=== PATIENT | male | born 1950 | race Caucasian/White ===

== ENCOUNTER 2021-10-26 20:09 | Inpatient (IN) | payer MEDICARE ==
[2021-10-26] MEDS ORDERED: Acetaminophen 650 MG Suppository PR PRN (23:59)
[2021-10-26] MEDS ORDERED: Ondansetron ODT 4 MG TAB PO PRN (23:59)
[2021-10-26] MEDS ORDERED: Acetaminophen 325 MG TAB PO PRN (23:59)
[2021-10-27] MEDS: Morphine 2 MG/ML VIAL SLOW IVP PRN ×6 (00:49→21:55)
[2021-10-27] MEDS: Ondansetron PF 4 MG/2 ML Vial IVP PRN (00:49)
[2021-10-27 01:58] VITALS: BMI 30.6
[2021-10-27] MEDS: cefTRIAXone\\ROCEPHIN 1 GM in Sodium Chloride 0.9% 100 ML IVPB SCH (04:16)
[2021-10-27 06:13] LABS: #Basophils 0.1 thou/uL (0.0-0.2); #Eosinphils 0.1 thou/uL (0.0-0.7); #Lymphocytes 2.1 thou/uL (1.20-3.40); #Monocytes 1.5 thou/uL (0.11-0.59); #Neutrophils 7.2 thou/uL (1.40-6.50); %Basophils 0.6 % (0.0-1.0); %Eosinophils 0.7 % (0.0-10.0); %Lymphocytes 18.9 % (21.0-51.0); %Monocytes 13.7 % (0.0-10.0); %Neutrophils 66.1 % (42.0-75.0); Hemoglobin 13.2 g/dL (14.0-18.0); Mean Corpuscular HGB CONC 33.6 g/dL (32.0-36.0); Mean Corpuscular Hemoglobin 33.6 pg (27.0-31.0); Mean Corpuscular Volume 99.9 fL (78.0-98.0); Mean Platelet Volume 6.9 fL (7.4-10.4); Platelet Count 231 thou/uL (130-400); RBC Distribution Width 11.4 % (11.5-14.5); Red Blood Cell (RBC) Count 3.94 mill/uL (4.70-6.10); White Blood Cell (WBC) Count 10.9 thou/uL (4.8-10.8)
[2021-10-27 06:54] LABS: Anion Gap 14 mmol/L (10-20); BUN (Urea Nitrogen) 9 mg/dL (8.4-25.7); Calc. Creatinine Clearance 134 mL/min (70-130); Calcium 8.6 mg/dL (7.8-10.44); Carbon Dioxide 22 mmol/L (23-31); Chloride 90 mmol/L (98-107); Glucose 94 mg/dL (80-115); Potassium 3.9 mmol/L (3.5-5.1); Sodium 122 mmol/L (136-145)
[2021-10-27] MEDS: Polyethylene Glycol 3350 17 GM Packet PO SCH (08:00)
[2021-10-27 16:28] LABS: SARS-CoV-2 PCR by NAA Not Detected (NotDetected)
[2021-10-27] MEDS: HYDROcodone/Acetaminophen 10/325 mg Tablet PO PRN (19:18)
[2021-10-27] MEDS: Metoprolol Tartrate 50 MG TAB PO SCH (21:05)
[2021-10-28] MEDS: Morphine 2 MG/ML VIAL SLOW IVP PRN ×3 (02:32→22:42)
[2021-10-28] MEDS: cefTRIAXone\\ROCEPHIN 1 GM in Sodium Chloride 0.9% 100 ML IVPB SCH (02:32)
[2021-10-28] MEDS: oxyCODONE 5 MG TAB PO PRN ×2 (06:09→17:50)
[2021-10-28] MEDS: Polyethylene Glycol 3350 17 GM Packet PO SCH (06:09)
[2021-10-28 06:47] LABS: #Eosinphils 0.1 thou/uL (0.0-0.7); #Lymphocytes 1.6 thou/uL (1.20-3.40); #Monocytes 1.4 thou/uL (0.11-0.59); #Neutrophils 6.2 thou/uL (1.40-6.50); %Basophils 0.3 % (0.0-1.0); %Eosinophils 0.7 % (0.0-10.0); %Lymphocytes 17.6 % (21.0-51.0); %Monocytes 14.6 % (0.0-10.0); %Neutrophils 66.8 % (42.0-75.0); Hemoglobin 13.1 g/dL (14.0-18.0); Mean Corpuscular Hemoglobin 33.9 pg (27.0-31.0); Mean Corpuscular Volume 99.6 fL (78.0-98.0); Mean Platelet Volume 6.8 fL (7.4-10.4); Platelet Count 246 thou/uL (130-400); RBC Distribution Width 11.5 % (11.5-14.5); Red Blood Cell (RBC) Count 3.87 mill/uL (4.70-6.10); White Blood Cell (WBC) Count 9.3 thou/uL (4.8-10.8)
[2021-10-28 07:13] LABS: Anion Gap 14 mmol/L (10-20); BUN (Urea Nitrogen) 8 mg/dL (8.4-25.7); Calc. Creatinine Clearance 152 mL/min (70-130); Calcium 8.4 mg/dL (7.8-10.44); Carbon Dioxide 23 mmol/L (23-31); Chloride 90 mmol/L (98-107); Glucose 95 mg/dL (80-115); Iron 31 ug/dL (65-175); Iron Binding Capacity, Total 251 mcg/dL (261-462); Potassium 4.1 mmol/L (3.5-5.1); Sodium 123 mmol/L (136-145)
[2021-10-28 07:54] LABS: Ferritin 1027.26 ng/mL (22-322)
[2021-10-28] MEDS: Metoprolol Tartrate 50 MG TAB PO SCH ×2 (08:16→20:24)
[2021-10-28] MEDS: Digoxin 0.25 MG TAB PO SCH (08:17)
[2021-10-28 09:34] LABS: Hep B Surf Ag Non-Reactive S/CO (NonReactive)
[2021-10-28 09:36] LABS: HBSAg Index 0.16 S/CO (0-0.99); Hep C IgG Ab Non-Reactive (NonReactive)
[2021-10-28 09:38] LABS: Hep C Index 0.06 S/CO (0-0.79)
[2021-10-28 09:39] LABS: Hep A IgM AB Non-Reactive (NonReactive)
[2021-10-28] MEDS ORDERED: GoLYTELY 4,000 ml Bottle PO SCH (10:45)
[2021-10-28 11:46] LABS: HBCM Index 0.08 S/CO (0-0.79); Hepatitis B Core IgM Abs Non-Reactive (NonReactive)
[2021-10-28] MEDS: HYDROcodone/Acetaminophen 10/325 mg Tablet PO PRN (12:31)
[2021-10-28] MEDS: Ondansetron PF 4 MG/2 ML Vial IVP PRN (15:43)
[2021-10-28 16:17] LABS: Anion Gap 13 mmol/L (10-20); BUN (Urea Nitrogen) 8 mg/dL (8.4-25.7); Calc. Creatinine Clearance 150 mL/min (70-130); Calcium 8.4 mg/dL (7.8-10.44); Carbon Dioxide 24 mmol/L (23-31); Chloride 90 mmol/L (98-107); Glucose 97 mg/dL (80-115); Potassium 4.1 mmol/L (3.5-5.1); Sodium 123 mmol/L (136-145)
[2021-10-28] MEDS ORDERED: Sodium Chloride 1 GM TAB PO SCH (19:30)
[2021-10-29] MEDS: cefTRIAXone\\ROCEPHIN 1 GM in Sodium Chloride 0.9% 100 ML IVPB SCH (03:03)
[2021-10-29] MEDS: oxyCODONE 5 MG TAB PO PRN (03:03)
[2021-10-29] MEDS ORDERED: GoLYTELY 4,000 ml Bottle PO SCH (06:15)
[2021-10-29] MEDS: Polyethylene Glycol 3350 17 GM Packet PO SCH (07:19)
[2021-10-29 08:05] LABS: #Eosinphils 0.1 thou/uL (0.0-0.7); #Monocytes 1.4 thou/uL (0.11-0.59); %Basophils 0.3 % (0.0-1.0); %Eosinophils 1.1 % (0.0-10.0); %Monocytes 14.5 % (0.0-10.0); %Neutrophils 63.2 % (42.0-75.0); Mean Corpuscular HGB CONC 33.5 g/dL (32.0-36.0); Mean Corpuscular Hemoglobin 33.3 pg (27.0-31.0); Mean Corpuscular Volume 99.4 fL (78.0-98.0); Mean Platelet Volume 6.6 fL (7.4-10.4); Platelet Count 293 thou/uL (130-400); RBC Distribution Width 11.5 % (11.5-14.5); Red Blood Cell (RBC) Count 3.91 mill/uL (4.70-6.10); White Blood Cell (WBC) Count 9.5 thou/uL (4.8-10.8)
[2021-10-29] MEDS: Digoxin 0.25 MG TAB PO SCH (08:08)
[2021-10-29] MEDS: Metoprolol Tartrate 50 MG TAB PO SCH ×2 (08:08→19:23)
[2021-10-29] MEDS: Sodium Chloride 1 GM TAB PO SCH ×3 (08:10→19:23)
[2021-10-29 08:19] LABS: Anion Gap 14 mmol/L (10-20); BUN (Urea Nitrogen) 7 mg/dL (8.4-25.7); Calc. Creatinine Clearance 145 mL/min (70-130); Calcium 8.2 mg/dL (7.8-10.44); Carbon Dioxide 25 mmol/L (23-31); Chloride 88 mmol/L (98-107); Glucose 82 mg/dL (80-115); Potassium 3.9 mmol/L (3.5-5.1); Sodium 123 mmol/L (136-145)
[2021-10-29] MEDS ORDERED: PROPOFOL 200 MG/20 ML VIAL ONE (11:53)
[2021-10-29] MEDS ORDERED: Esmolol 100 MG/10 ML VIAL ONE (11:53)
[2021-10-29 12:09] LABS: ANA Symphony (Qualitative) Negative (Negative); ANA Symphony (Quantitative) 0.2 Ratio (< 0.7 Negative); EliA Vaculitis New Method **** NEW METHOD ****; Mitochondrial Ab Less than 0.5 U/mL (<4 Negative); dsDNA IgG Antibody 0.6 IU/mL (<10 Negative)
[2021-10-29] MEDS: HYDROcodone/Acetaminophen 10/325 mg Tablet PO PRN (19:26)
[2021-10-29] MEDS: Morphine 2 MG/ML VIAL SLOW IVP PRN (22:38)
[2021-10-30] MEDS: cefTRIAXone\\ROCEPHIN 1 GM in Sodium Chloride 0.9% 100 ML IVPB SCH (03:49)
[2021-10-30] MEDS: Polyethylene Glycol 3350 17 GM Packet PO SCH (06:20)
[2021-10-30] MEDS: Morphine 2 MG/ML VIAL SLOW IVP PRN ×2 (06:20→11:29)
[2021-10-30 07:37] LABS: #Eosinphils 0.1 thou/uL (0.0-0.7); #Lymphocytes 1.5 thou/uL (1.20-3.40); #Monocytes 1.2 thou/uL (0.11-0.59); %Basophils 0.5 % (0.0-1.0); %Eosinophils 1.1 % (0.0-10.0); %Lymphocytes 16.9 % (21.0-51.0); %Monocytes 13.4 % (0.0-10.0); Hemoglobin 12.6 g/dL (14.0-18.0); Mean Corpuscular HGB CONC 33.5 g/dL (32.0-36.0); Mean Corpuscular Hemoglobin 33.2 pg (27.0-31.0); Mean Corpuscular Volume 99.1 fL (78.0-98.0); Mean Platelet Volume 6.5 fL (7.4-10.4); Platelet Count 237 thou/uL (130-400); RBC Distribution Width 11.5 % (11.5-14.5); Red Blood Cell (RBC) Count 3.78 mill/uL (4.70-6.10); White Blood Cell (WBC) Count 8.9 thou/uL (4.8-10.8)
[2021-10-30 07:47] LABS: PTT 29.1 sec (22.9-36.1)
[2021-10-30 08:03] LABS: Anion Gap 15 mmol/L (10-20); BUN (Urea Nitrogen) 6 mg/dL (8.4-25.7); Calc. Creatinine Clearance 166 mL/min (70-130); Calcium 7.9 mg/dL (7.8-10.44); Carbon Dioxide 21 mmol/L (23-31); Chloride 88 mmol/L (98-107); Glucose 83 mg/dL (80-115); Potassium 3.8 mmol/L (3.5-5.1); Sodium 120 mmol/L (136-145)
[2021-10-30] MEDS: Digoxin 0.25 MG TAB PO SCH (08:20)
[2021-10-30] MEDS: Metoprolol Tartrate 50 MG TAB PO SCH (08:21)
[2021-10-30] MEDS: Sodium Chloride 1 GM TAB PO SCH ×3 (08:24→20:21)
[2021-10-30] MEDS: HYDROcodone/Acetaminophen 10/325 mg Tablet PO PRN ×2 (09:55→20:14)
[2021-10-30] MEDS ORDERED: Midazolam HCl 2 mg/2 ml Vial ONE (10:10)
[2021-10-30] MEDS ORDERED: Fentanyl 100 MCG/2 ML VIAL ONE (10:10)
[2021-10-30] MEDS ORDERED: Lidocaine 1% PF 5 ML VIAL ONE (10:11)
[2021-10-30] MEDS ORDERED: Sodium Bicarbonate 2.5 MEQ/5 ML VIAL ONE (10:11)
[2021-10-30] MEDS ORDERED: Iopamidol 370 76% 100 ML VIAL ONE (12:45)
[2021-10-30] MEDS: oxyCODONE 5 MG TAB PO PRN (15:05)
[2021-10-30 16:27] LABS: Anion Gap 12 mmol/L (10-20); BUN (Urea Nitrogen) 4 mg/dL (8.4-25.7); Calc. Creatinine Clearance 143 mL/min (70-130); Calcium 8.2 mg/dL (7.8-10.44); Carbon Dioxide 25 mmol/L (23-31); Chloride 86 mmol/L (98-107); Glucose 110 mg/dL (80-115); Potassium 3.8 mmol/L (3.5-5.1)
[2021-10-30 16:53] LABS: Sodium 119 mmol/L (136-145)
[2021-10-30] MEDS ORDERED: Sodium Chloride 3% 200 ML IVPB SCH (17:45)
[2021-10-30] MEDS ORDERED: Metoprolol Tartrate 50 MG TAB PO SCH (21:00)
[2021-10-30 23:25] LABS: Anion Gap 11 mmol/L (10-20); BUN (Urea Nitrogen) 6 mg/dL (8.4-25.7); Calc. Creatinine Clearance 132 mL/min (70-130); Calcium 8.3 mg/dL (7.8-10.44); Carbon Dioxide 25 mmol/L (23-31); Chloride 90 mmol/L (98-107); Glucose 133 mg/dL (80-115); Potassium 4.1 mmol/L (3.5-5.1); Sodium 122 mmol/L (136-145)
[2021-10-31] MEDS: cefTRIAXone\\ROCEPHIN 1 GM in Sodium Chloride 0.9% 100 ML IVPB SCH (03:34)
[2021-10-31] MEDS: HYDROcodone/Acetaminophen 10/325 mg Tablet PO PRN (06:07)
[2021-10-31] MEDS: Polyethylene Glycol 3350 17 GM Packet PO SCH (06:07)
[2021-10-31 07:02] LABS: #Basophils 0.1 thou/uL (0.0-0.2); #Eosinphils 0.1 thou/uL (0.0-0.7); #Lymphocytes 1.6 thou/uL (1.20-3.40); #Monocytes 1.4 thou/uL (0.11-0.59); #Neutrophils 6.8 thou/uL (1.40-6.50); %Basophils 0.5 % (0.0-1.0); %Lymphocytes 15.9 % (21.0-51.0); %Monocytes 13.8 % (0.0-10.0); %Neutrophils 68.7 % (42.0-75.0); Mean Corpuscular HGB CONC 33.5 g/dL (32.0-36.0); Mean Corpuscular Hemoglobin 33.4 pg (27.0-31.0); Mean Corpuscular Volume 99.7 fL (78.0-98.0); Mean Platelet Volume 6.6 fL (7.4-10.4); Platelet Count 265 thou/uL (130-400); RBC Distribution Width 11.5 % (11.5-14.5); Red Blood Cell (RBC) Count 3.88 mill/uL (4.70-6.10)
[2021-10-31 07:23] LABS: Anion Gap 11 mmol/L (10-20); BUN (Urea Nitrogen) 6 mg/dL (8.4-25.7); Calc. Creatinine Clearance 152 mL/min (70-130); Calcium 8.4 mg/dL (7.8-10.44); Carbon Dioxide 24 mmol/L (23-31); Chloride 90 mmol/L (98-107); Glucose 96 mg/dL (80-115); Potassium 3.9 mmol/L (3.5-5.1); Sodium 121 mmol/L (136-145)
[2021-10-31] MEDS ORDERED: Sodium Chloride 3% 500 ML IVPB SCH ×2 (07:30→21:15)
[2021-10-31] MEDS: Metoprolol Tartrate 50 MG TAB PO SCH ×2 (08:13→20:02)
[2021-10-31] MEDS: Sodium Chloride 1 GM TAB PO SCH ×3 (08:13→20:02)
[2021-10-31] MEDS: Digoxin 0.25 MG TAB PO SCH (08:14)
[2021-10-31] MEDS: Morphine 2 MG/ML VIAL SLOW IVP PRN ×2 (08:18→17:21)
[2021-10-31 13:14] LABS: Anion Gap 11 mmol/L (10-20); BUN (Urea Nitrogen) 6 mg/dL (8.4-25.7); Calc. Creatinine Clearance 160 mL/min (70-130); Calcium 7.9 mg/dL (7.8-10.44); Carbon Dioxide 21 mmol/L (23-31); Chloride 91 mmol/L (98-107); Glucose 124 mg/dL (80-115); Potassium 3.4 mmol/L (3.5-5.1); Sodium 120 mmol/L (136-145)
[2021-10-31] MEDS: oxyCODONE 5 MG TAB PO PRN (13:21)
[2021-10-31] MEDS ORDERED: Potassium Chloride 20 MEQ TAB PO SCH (15:00)
[2021-10-31 16:28] LABS: Anion Gap 13 mmol/L (10-20); BUN (Urea Nitrogen) 6 mg/dL (8.4-25.7); Calc. Creatinine Clearance 150 mL/min (70-130); Calcium 7.9 mg/dL (7.8-10.44); Carbon Dioxide 21 mmol/L (23-31); Chloride 94 mmol/L (98-107); Glucose 127 mg/dL (80-115); Potassium 3.7 mmol/L (3.5-5.1); Sodium 124 mmol/L (136-145)
[2021-10-31 19:52] LABS: #Basophils 0.1 thou/uL (0.0-0.2); #Eosinphils 0.1 thou/uL (0.0-0.7); #Lymphocytes 1.2 thou/uL (1.20-3.40); #Monocytes 1.2 thou/uL (0.11-0.59); #Neutrophils 6.4 thou/uL (1.40-6.50); %Basophils 0.8 % (0.0-1.0); %Eosinophils 1.1 % (0.0-10.0); %Lymphocytes 13.7 % (21.0-51.0); %Monocytes 13.3 % (0.0-10.0); %Neutrophils 71.2 % (42.0-75.0); Hemoglobin 12.6 g/dL (14.0-18.0); Mean Corpuscular Hemoglobin 33.5 pg (27.0-31.0); Mean Platelet Volume 6.4 fL (7.4-10.4); Platelet Count 277 thou/uL (130-400); RBC Distribution Width 11.7 % (11.5-14.5); Red Blood Cell (RBC) Count 3.75 mill/uL (4.70-6.10)
[2021-10-31 20:01] LABS: Lactic Acid 2.2 mmol/L (0.5-2.2)
[2021-10-31] MEDS: Senokot S 8.6-50 MG TAB PO SCH (20:02)
[2021-10-31 20:06] LABS: ALT (SGPT) 72 U/L (8-55); AST (SGOT) 66 U/L (5-34); Alkaline Phosphatase 275 U/L (40-110); Anion Gap 11 mmol/L (10-20); BUN (Urea Nitrogen) 7 mg/dL (8.4-25.7); Bilirubin, Total 1.2 mg/dL (0.2-1.2); Calc. Creatinine Clearance 138 mL/min (70-130); Carbon Dioxide 20 mmol/L (23-31); Chloride 96 mmol/L (98-107); Globulin 2.8 g/dL (2.4-3.5); Glucose 139 mg/dL (80-115); Potassium 3.8 mmol/L (3.5-5.1); Protein, Total 5.8 g/dL (5.8-8.1); Sodium 123 mmol/L (136-145)
[2021-10-31 20:16] LABS: Magnesium 1.6 mg/dL (1.6-2.6)
[2021-10-31] MEDS: Metoprolol Tartrate 5 MG/5 ML VIAL IVP PRN (21:10)
[2021-10-31] MEDS ORDERED: Magnesium Sulfate In Water 4 GM in Premix Bag 1 BAG IVPB SCH (21:30)
[2021-10-31] MEDS ORDERED: Electrolyte Replacement Protocol 1 EACH FS PRN (23:00)
[2021-11-01 01:19] LABS: Anion Gap 11 mmol/L (10-20); BUN (Urea Nitrogen) 7 mg/dL (8.4-25.7); Calc. Creatinine Clearance 143 mL/min (70-130); Calcium 8.2 mg/dL (7.8-10.44); Carbon Dioxide 26 mmol/L (23-31); Chloride 96 mmol/L (98-107); Glucose 107 mg/dL (80-115); Potassium 4.4 mmol/L (3.5-5.1); Sodium 129 mmol/L (136-145)
[2021-11-01] MEDS: oxyCODONE 5 MG TAB PO PRN ×3 (01:55→20:32)
[2021-11-01] MEDS: cefTRIAXone\\ROCEPHIN 1 GM in Sodium Chloride 0.9% 100 ML IVPB SCH (03:08)
[2021-11-01 04:19] LABS: #Eosinphils 0.1 thou/uL (0.0-0.7); #Lymphocytes 1.4 thou/uL (1.20-3.40); #Monocytes 1.1 thou/uL (0.11-0.59); #Neutrophils 5.8 thou/uL (1.40-6.50); %Basophils 0.4 % (0.0-1.0); %Eosinophils 1.6 % (0.0-10.0); %Lymphocytes 16.6 % (21.0-51.0); %Monocytes 13.3 % (0.0-10.0); %Neutrophils 68.1 % (42.0-75.0); Hemoglobin 12.4 g/dL (14.0-18.0); Mean Corpuscular HGB CONC 32.8 g/dL (32.0-36.0); Mean Corpuscular Hemoglobin 33.3 pg (27.0-31.0); Mean Platelet Volume 6.4 fL (7.4-10.4); Platelet Count 283 thou/uL (130-400); RBC Distribution Width 11.7 % (11.5-14.5); Red Blood Cell (RBC) Count 3.71 mill/uL (4.70-6.10); White Blood Cell (WBC) Count 8.5 thou/uL (4.8-10.8)
[2021-11-01 04:39] LABS: Anion Gap 11 mmol/L (10-20); BUN (Urea Nitrogen) 7 mg/dL (8.4-25.7); Calc. Creatinine Clearance 145 mL/min (70-130); Carbon Dioxide 24 mmol/L (23-31); Chloride 98 mmol/L (98-107); Glucose 97 mg/dL (80-115); Magnesium 2.4 mg/dL (1.6-2.6); Potassium 4.6 mmol/L (3.5-5.1); Sodium 128 mmol/L (136-145)
[2021-11-01] MEDS ORDERED: Potassium Chloride 20 MEQ TAB PO SCH (05:15)
[2021-11-01 06:35] LABS: Bacteria/HPF None Seen HPF (None Seen); Bilirubin Negative (Negative); Blood, Urine Negative (Negative); Clarity Clear (Clear); Glucose, Urine (Dipstick) Normal (Negative); Ketone, Urine Negative (Negative); Leukocyte Negative Leu/uL (Negative); Nitrite Negative (Negative); Protein, Urine (Dipstick) Negative (Neg-Trace); RBC/HPF 0-3 HPF (0-3); Specific Gravity, Urine 1.021 (1.002-1.036); Squamous Epithelial 0-3 HPF (0-3)
[2021-11-01 06:39] LABS: Urine Culture Reflex Yes Yes
[2021-11-01] MEDS: Digoxin 0.25 MG TAB PO SCH (08:08)
[2021-11-01] MEDS: Senokot S 8.6-50 MG TAB PO SCH ×2 (08:09→20:33)
[2021-11-01] MEDS: Metoprolol Tartrate 50 MG TAB PO SCH ×2 (08:09→20:33)
[2021-11-01] MEDS: Polyethylene Glycol 3350 17 GM Packet PO SCH (11:00)
[2021-11-01] MEDS: Sodium Chloride 1 GM TAB PO SCH ×3 (11:00→21:02)
[2021-11-01] MEDS: Morphine 2 MG/ML VIAL SLOW IVP PRN ×2 (12:15→16:02)
[2021-11-01] MEDS ORDERED: Iopamidol 370 76% 100 ML VIAL ONE (13:50)
[2021-11-01 14:20] LABS: Anion Gap 12 mmol/L (10-20); BUN (Urea Nitrogen) 6 mg/dL (8.4-25.7); Calc. Creatinine Clearance 145 mL/min (70-130); Calcium 8.1 mg/dL (7.8-10.44); Carbon Dioxide 23 mmol/L (23-31); Chloride 98 mmol/L (98-107); Glucose 120 mg/dL (80-115); Potassium 4.3 mmol/L (3.5-5.1); Sodium 129 mmol/L (136-145)
[2021-11-01] MEDS: Rivaroxaban 10 MG TAB PO SCH (16:02)
[2021-11-01] MEDS: Metoprolol Tartrate 5 MG/5 ML VIAL IVP PRN (18:48)
[2021-11-01] MEDS ORDERED: Digoxin 0.5 MG/2 ML AMP SLOW IVP SCH (19:30)
[2021-11-02] MEDS: Morphine 2 MG/ML VIAL SLOW IVP PRN ×3 (00:13→16:46)
[2021-11-02] MEDS ORDERED: Digoxin 0.5 MG/2 ML AMP SLOW IVP SCH ×2 (01:30→07:30)
[2021-11-02] MEDS: cefTRIAXone\\ROCEPHIN 1 GM in Sodium Chloride 0.9% 100 ML IVPB SCH (03:52)
[2021-11-02] MEDS: HYDROcodone/Acetaminophen 10/325 mg Tablet PO PRN ×2 (03:58→18:29)
[2021-11-02 04:08] LABS: #Basophils 0.1 thou/uL (0.0-0.2); #Eosinphils 0.2 thou/uL (0.0-0.7); #Lymphocytes 1.5 thou/uL (1.20-3.40); #Monocytes 1.2 thou/uL (0.11-0.59); %Basophils 0.8 % (0.0-1.0); %Eosinophils 1.5 % (0.0-10.0); %Lymphocytes 13.2 % (21.0-51.0); %Monocytes 10.9 % (0.0-10.0); %Neutrophils 73.6 % (42.0-75.0); Hemoglobin 13.3 g/dL (14.0-18.0); Mean Corpuscular HGB CONC 33.2 g/dL (32.0-36.0); Mean Corpuscular Hemoglobin 33.3 pg (27.0-31.0); Mean Platelet Volume 6.5 fL (7.4-10.4); Platelet Count 311 thou/uL (130-400); RBC Distribution Width 11.8 % (11.5-14.5); Red Blood Cell (RBC) Count 3.99 mill/uL (4.70-6.10); White Blood Cell (WBC) Count 10.9 thou/uL (4.8-10.8)
[2021-11-02 04:30] LABS: Anion Gap 12 mmol/L (10-20); BUN (Urea Nitrogen) 6 mg/dL (8.4-25.7); Calc. Creatinine Clearance 150 mL/min (70-130); Calcium 8.8 mg/dL (7.8-10.44); Carbon Dioxide 25 mmol/L (23-31); Chloride 94 mmol/L (98-107); Glucose 101 mg/dL (80-115); Potassium 4.4 mmol/L (3.5-5.1); Sodium 127 mmol/L (136-145)
[2021-11-02] MEDS: Metoprolol Tartrate 5 MG/5 ML VIAL IVP PRN (04:45)
[2021-11-02] MEDS ORDERED: Bisacodyl 10 MG SUPP PR PRN (08:36)
[2021-11-02] MEDS: Polyethylene Glycol 3350 17 GM Packet PO SCH (08:40)
[2021-11-02] MEDS: Senokot S 8.6-50 MG TAB PO SCH ×2 (08:40→20:11)
[2021-11-02] MEDS: oxyCODONE 5 MG TAB PO PRN ×2 (08:40→20:12)
[2021-11-02] MEDS: Sodium Chloride 1 GM TAB PO SCH ×3 (08:41→20:11)
[2021-11-02] MEDS: Metoprolol Tartrate 50 MG TAB PO SCH ×2 (08:41→20:12)
[2021-11-02] MEDS ORDERED: Bisacodyl 10 MG SUPP PR SCH (08:45)
[2021-11-02] MEDS: Rivaroxaban 10 MG TAB PO SCH (16:43)
[2021-11-02 17:36] LABS: Anion Gap 15 mmol/L (10-20); BUN (Urea Nitrogen) 6 mg/dL (8.4-25.7); Calc. Creatinine Clearance 138 mL/min (70-130); Calcium 8.4 mg/dL (7.8-10.44); Carbon Dioxide 21 mmol/L (23-31); Chloride 94 mmol/L (98-107); Glucose 109 mg/dL (80-115); Potassium 4.2 mmol/L (3.5-5.1); Sodium 126 mmol/L (136-145)
[2021-11-03] MEDS: Morphine 2 MG/ML VIAL SLOW IVP PRN ×4 (01:26→20:25)
[2021-11-03] MEDS: cefTRIAXone\\ROCEPHIN 1 GM in Sodium Chloride 0.9% 100 ML IVPB SCH (02:56)
[2021-11-03] MEDS: HYDROcodone/Acetaminophen 10/325 mg Tablet PO PRN (02:57)
[2021-11-03 04:36] LABS: #Basophils 0.1 thou/uL (0.0-0.2); #Eosinphils 0.2 thou/uL (0.0-0.7); #Lymphocytes 1.3 thou/uL (1.20-3.40); #Monocytes 1.3 thou/uL (0.11-0.59); #Neutrophils 7.6 thou/uL (1.40-6.50); %Basophils 0.9 % (0.0-1.0); %Eosinophils 2.3 % (0.0-10.0); %Lymphocytes 12.7 % (21.0-51.0); %Monocytes 12.3 % (0.0-10.0); %Neutrophils 71.9 % (42.0-75.0); Hemoglobin 13.2 g/dL (14.0-18.0); Mean Corpuscular HGB CONC 32.9 g/dL (32.0-36.0); Mean Corpuscular Hemoglobin 32.9 pg (27.0-31.0); Mean Platelet Volume 6.4 fL (7.4-10.4); Platelet Count 304 thou/uL (130-400); RBC Distribution Width 11.8 % (11.5-14.5); Red Blood Cell (RBC) Count 4.01 mill/uL (4.70-6.10); White Blood Cell (WBC) Count 10.5 thou/uL (4.8-10.8)
[2021-11-03 04:59] LABS: Anion Gap 13 mmol/L (10-20); BUN (Urea Nitrogen) 8 mg/dL (8.4-25.7); Calc. Creatinine Clearance 150 mL/min (70-130); Calcium 8.6 mg/dL (7.8-10.44); Carbon Dioxide 23 mmol/L (23-31); Chloride 95 mmol/L (98-107); Glucose 105 mg/dL (80-115); Magnesium 1.8 mg/dL (1.6-2.6); Potassium 4.3 mmol/L (3.5-5.1); Sodium 127 mmol/L (136-145)
[2021-11-03] MEDS ORDERED: Magnesium 2 GM/50 ML(in water) 2 GM in Premix Bag 1 BAG IVPB SCH (06:00)
[2021-11-03] MEDS: Sodium Chloride 1 GM TAB PO SCH (08:07)
[2021-11-03] MEDS: Metoprolol Tartrate 50 MG TAB PO SCH (08:07)
[2021-11-03] MEDS: Senokot S 8.6-50 MG TAB PO SCH ×2 (08:07→20:25)
[2021-11-03] MEDS: Polyethylene Glycol 3350 17 GM Packet PO SCH (08:07)
[2021-11-03] MEDS: Digoxin 0.125 MG TAB PO SCH (08:08)
[2021-11-03] MEDS: oxyCODONE 5 MG TAB PO PRN ×3 (08:09→23:25)
[2021-11-03] MEDS ORDERED: Metoprolol Tartrate 50 MG TAB PO SCH (10:15)
[2021-11-03 15:36] LABS: Digoxin 1.18 ng/mL (0.8-2.0)
[2021-11-03 16:35] LABS: SARS-CoV-2 PCR by NAA Not Detected (NotDetected)
[2021-11-03] MEDS: Rivaroxaban 10 MG TAB PO SCH (17:02)
[2021-11-03 17:19] LABS: Anion Gap 14 mmol/L (10-20); BUN (Urea Nitrogen) 9 mg/dL (8.4-25.7); Calc. Creatinine Clearance 119 mL/min (70-130); Calcium 9.3 mg/dL (7.8-10.44); Carbon Dioxide 27 mmol/L (23-31); Chloride 101 mmol/L (98-107); Glucose 114 mg/dL (80-115); Potassium 4.5 mmol/L (3.5-5.1); Sodium 137 mmol/L (136-145)
[2021-11-03] MEDS ORDERED: Amiodarone 150 MG in Dextrose 5% in Water 100 ML IVPB SCH (17:45)
[2021-11-03] MEDS: Amiodarone 450 MG in Dextrose 5% in Water 250 ML IVPB SCH (18:01)
[2021-11-03] MEDS: Metoprolol Tartrate 100 MG TAB PO SCH (20:23)
[2021-11-04] MEDS: cefTRIAXone\\ROCEPHIN 1 GM in Sodium Chloride 0.9% 100 ML IVPB SCH (02:14)
[2021-11-04] MEDS: Amiodarone 450 MG in Dextrose 5% in Water 250 ML IVPB SCH ×2 (02:15→18:22)
[2021-11-04] MEDS: Morphine 2 MG/ML VIAL SLOW IVP PRN ×3 (02:15→20:31)
[2021-11-04 05:20] LABS: Anion Gap 15 mmol/L (10-20); BUN (Urea Nitrogen) 11 mg/dL (8.4-25.7); Calc. Creatinine Clearance 131 mL/min (70-130); Calcium 9.1 mg/dL (7.8-10.44); Carbon Dioxide 24 mmol/L (23-31); Chloride 103 mmol/L (98-107); Glucose 124 mg/dL (80-115); Potassium 4.1 mmol/L (3.5-5.1); Sodium 138 mmol/L (136-145)
[2021-11-04] MEDS: oxyCODONE 5 MG TAB PO PRN ×2 (07:48→15:53)
[2021-11-04] MEDS: Polyethylene Glycol 3350 17 GM Packet PO SCH (07:48)
[2021-11-04] MEDS: Senokot S 8.6-50 MG TAB PO SCH ×2 (09:22→20:31)
[2021-11-04] MEDS: Metoprolol Tartrate 100 MG TAB PO SCH ×2 (09:22→20:31)
[2021-11-04] MEDS: Digoxin 0.125 MG TAB PO SCH (09:22)
[2021-11-04] MEDS: Rivaroxaban 10 MG TAB PO SCH (15:54)
[2021-11-05] MEDS: oxyCODONE 5 MG TAB PO PRN ×3 (00:12→16:55)
[2021-11-05] MEDS: cefTRIAXone\\ROCEPHIN 1 GM in Sodium Chloride 0.9% 100 ML IVPB SCH (03:03)
[2021-11-05] MEDS: Morphine 2 MG/ML VIAL SLOW IVP PRN ×3 (03:06→20:59)
[2021-11-05 04:32] LABS: #Eosinphils 0.1 thou/uL (0.0-0.7); #Lymphocytes 1.3 thou/uL (1.20-3.40); #Monocytes 1.3 thou/uL (0.11-0.59); #Neutrophils 10.2 thou/uL (1.40-6.50); %Basophils 0.4 % (0.0-1.0); %Eosinophils 0.6 % (0.0-10.0); %Lymphocytes 10.1 % (21.0-51.0); %Monocytes 10.2 % (0.0-10.0); %Neutrophils 78.8 % (42.0-75.0); Hemoglobin 12.8 g/dL (14.0-18.0); Mean Corpuscular Hemoglobin 32.7 pg (27.0-31.0); Mean Platelet Volume 6.6 fL (7.4-10.4); Platelet Count 355 thou/uL (130-400); RBC Distribution Width 12.1 % (11.5-14.5); Red Blood Cell (RBC) Count 3.92 mill/uL (4.70-6.10)
[2021-11-05 04:48] LABS: Anion Gap 13 mmol/L (10-20); BUN (Urea Nitrogen) 15 mg/dL (8.4-25.7); Calc. Creatinine Clearance 125 mL/min (70-130); Calcium 8.9 mg/dL (7.8-10.44); Carbon Dioxide 26 mmol/L (23-31); Chloride 102 mmol/L (98-107); Glucose 148 mg/dL (80-115); Magnesium 2.1 mg/dL (1.6-2.6); Potassium 3.9 mmol/L (3.5-5.1); Sodium 137 mmol/L (136-145)
[2021-11-05 05:08] LABS: Digoxin 0.83 ng/mL (0.8-2.0)
[2021-11-05] MEDS: Metoprolol Tartrate 100 MG TAB PO SCH ×2 (08:54→20:59)
[2021-11-05] MEDS: Senokot S 8.6-50 MG TAB PO SCH ×2 (08:55→20:59)
[2021-11-05] MEDS: Digoxin 0.125 MG TAB PO SCH (08:55)
[2021-11-05] MEDS: Polyethylene Glycol 3350 17 GM Packet PO SCH (08:55)
[2021-11-05] MEDS: Amiodarone 450 MG in Dextrose 5% in Water 250 ML IVPB SCH (11:22)
[2021-11-05] MEDS: Rivaroxaban 10 MG TAB PO SCH (16:57)
[2021-11-06] MEDS: oxyCODONE 5 MG TAB PO PRN ×3 (00:04→16:54)
[2021-11-06] MEDS: Morphine 2 MG/ML VIAL SLOW IVP PRN ×2 (03:46→20:21)
[2021-11-06] MEDS: Amiodarone 450 MG in Dextrose 5% in Water 250 ML IVPB SCH (03:47)
[2021-11-06 04:32] LABS: ALT (SGPT) 96 U/L (8-55); AST (SGOT) 90 U/L (5-34); Albumin 3.4 g/dL (3.4-4.8); Alkaline Phosphatase 448 U/L (40-110); Anion Gap 15 mmol/L (10-20); BUN (Urea Nitrogen) 19 mg/dL (8.4-25.7); Bilirubin, Total 1.4 mg/dL (0.2-1.2); Calc. Creatinine Clearance 109 mL/min (70-130); Calcium 9.3 mg/dL (7.8-10.44); Carbon Dioxide 26 mmol/L (23-31); Chloride 101 mmol/L (98-107); Globulin 3.1 g/dL (2.4-3.5); Glucose 198 mg/dL (80-115); Potassium 3.9 mmol/L (3.5-5.1); Protein, Total 6.5 g/dL (5.8-8.1); Sodium 138 mmol/L (136-145)
[2021-11-06] MEDS: Metoprolol Tartrate 100 MG TAB PO SCH ×2 (08:49→20:22)
[2021-11-06] MEDS: Digoxin 0.125 MG TAB PO SCH (08:49)
[2021-11-06] MEDS: Senokot S 8.6-50 MG TAB PO SCH ×3 (08:49→20:24)
[2021-11-06] MEDS: Polyethylene Glycol 3350 17 GM Packet PO SCH (08:50)
[2021-11-06] MEDS: Sodium Chloride 1 GM TAB PO SCH ×3 (10:47→20:27)
[2021-11-06] MEDS: Rivaroxaban 10 MG TAB PO SCH (16:49)
[2021-11-07 04:58] LABS: ALT (SGPT) 124 U/L (8-55); AST (SGOT) 122 U/L (5-34); Albumin 2.9 g/dL (3.4-4.8); Alkaline Phosphatase 412 U/L (40-110); Anion Gap 9 mmol/L (10-20); BUN (Urea Nitrogen) 21 mg/dL (8.4-25.7); Bilirubin, Total 1.1 mg/dL (0.2-1.2); Calc. Creatinine Clearance 106 mL/min (70-130); Calcium 8.6 mg/dL (7.8-10.44); Carbon Dioxide 33 mmol/L (23-31); Chloride 103 mmol/L (98-107); Globulin 2.6 g/dL (2.4-3.5); Glucose 127 mg/dL (80-115); Potassium 4.1 mmol/L (3.5-5.1); Protein, Total 5.5 g/dL (5.8-8.1); Sodium 141 mmol/L (136-145)
[2021-11-07] MEDS: Metoprolol Tartrate 100 MG TAB PO SCH (09:22)
[2021-11-07] MEDS: Polyethylene Glycol 3350 17 GM Packet PO SCH (09:22)
[2021-11-07] MEDS: Senokot S 8.6-50 MG TAB PO SCH (09:23)
[2021-11-07] MEDS: Digoxin 0.125 MG TAB PO SCH (09:23)
[2021-11-07] MEDS: oxyCODONE 5 MG TAB PO PRN ×2 (09:30)
[2021-11-07] MEDS: Sodium Chloride 1 GM TAB PO SCH (09:30)
[2021-11-07 12:47] VITALS: BP 152/85; TEMP 97.8
== END 2021-11-07 15:22 | disposition home health service (06) | DRG 375 ==
LOC: T4-A 20:09 → INTOOBSV 20:09 → OBSVTOIN 10-28 18:01 → 2NO 10-31 20:42
PROVIDERS: ADMIT Student in an Organized Health Care Education/Training Program; ATTEND Emergency Medicine
PROC: 0DB38ZX Excision of Lower Esophagus, Via Natural or Artificial Opening Endoscopic, Diagnostic (ICD-10-PCS; principal; 2021-10-29)
PROC: 0DBN8ZZ Excision of Sigmoid Colon, Via Natural or Artificial Opening Endoscopic (ICD-10-PCS; 2021-10-29)
PROC: 0DBK8ZZ Excision of Ascending Colon, Via Natural or Artificial Opening Endoscopic (ICD-10-PCS; 2021-10-29)
PROC: 0FB13ZX Excision of Right Lobe Liver, Percutaneous Approach, Diagnostic (ICD-10-PCS; 2021-10-30)
DX: C15.5 Malignant neoplasm of lower third of esophagus (principal); C22.8 Malignant neoplasm of liver, primary, unspecified as to type; R18.8 Other ascites; I48.20 Chronic atrial fibrillation, unspecified; E22.2 Syndrome of inappropriate secretion of antidiuretic hormone; C34.90 Malignant neoplasm of unspecified part of unspecified bronchus or lung; K76.9 Liver disease, unspecified; Z66 Do not resuscitate; Z51.5 Encounter for palliative care; E78.5 Hyperlipidemia, unspecified; M54.9 Dorsalgia, unspecified; G89.29 Other chronic pain; K74.60 Unspecified cirrhosis of liver; M47.816 Spondylosis without myelopathy or radiculopathy, lumbar region; R16.0 Hepatomegaly, not elsewhere classified; D72.829 Elevated white blood cell count, unspecified; R79.89 Other specified abnormal findings of blood chemistry; K59.09 Other constipation; I10 Essential (primary) hypertension; E83.42 Hypomagnesemia; K64.4 Residual hemorrhoidal skin tags; K64.8 Other hemorrhoids; Z20.822 Contact with and (suspected) exposure to COVID-19; Z91.09 Other allergy status, other than to drugs and biological substances; Z79.01 Long term (current) use of anticoagulants; Z79.899 Other long term (current) drug therapy; Z79.891 Long term (current) use of opiate analgesic; Z98.890 Other specified postprocedural states; Z87.891 Personal history of nicotine dependence; Z72.89 Other problems related to lifestyle; Z80.8 Family history of malignant neoplasm of other organs or systems
CPT/HCPCS: 36415; 47000; 71045; 71260; 74160; 77012; 80048; 80053; 80074; 80162; 81001; 82105; 82378; 82390; 82728; 83516; 83540; 83550; 83605; 83735; 83930; 83935; 85025; 85610; 85730; 86015; 86038; 86225; 86301; 87086; 88305; 88307; 88333; 88334; 88341; 88342; 93005; 93010; 93306; 96365; 96375; 96376; G0378; J0282; J0696; J1160; J2250; J2270; J2405; J2704; J3010; J3475; J3490; J7070; J7131; Q9967; U0003; U0005